=== PATIENT | female | born 1945 | race Caucasian/White ===

== ENCOUNTER → 2020-09-07 | Outpatient (CLI) | payer MEDICARE ==
[~2020-09-07] MED LIST: IOPAMIDOL 370 MG/ML 200 ML INFUS..BTL INJ ONE; SODIUM CHLORIDE 0.9% 100 ML ONE
[2020-09-07 12:21] LABS: BLOOD UREA NITROGEN 16 mg/dL (7-26); BUN/CREATININE RATIO 21 (6-25); CREATININE, SERUM 0.77 mg/dL (0.57-1.11); EST GLOMERULAR FILTRATION RATE > 60 ML/MIN (60-)
--- NOTE | 2020-09-07 13:38 | Diagnostic Imaging Report ---
EXAM: CT CHEST AND ABDOMEN WITH CONTRAST CLINICAL INDICATION: Aortic thrombus TECHNIQUE: CT chest and abdomen was performed, following the administration of intravenous contrast, as per department protocol. Axial, sagittal, and coronal reconstructions were obtained. Additional 3-D reconstructions were generated on the workstation by the technologist. IV CONTRAST:100 cc of Isovue-300 RADIATION DOSE REDUCTION: This exam was performed according to the departmental dose-optimization program which includes automated exposure control, adjustment of the mA and/or kV according to patient size and/or use of iterative reconstruction technique. COMPARISON: None FINDINGS: VASCULAR COMPONENTS: Vascular structures including the entire aorta, the cervicocerebral branches, the celiac superior mesenteric and inferior mesenteric arteries, single bilateral renal arteries, the common iliac arteries to the extent seen are without significant abnormality.. Specifically, there is no acute aortic pathology identified on contrast enhanced images. There is atherosclerosis of the aorta. There is minimal wall thickening of the proximal descending thoracic aorta likely because of the plaque. There is presence of atherosclerosis and wall adherent plaque or small mural thrombus in the infrarenal abdominal aorta. The study was not easy GE aerated. Curved planar reformats and spur not obtained. The measurements are based on axial images. The ascending aorta measures 30 mm. The descending thoracic aorta at the level of the pulmonary artery bifurcation measures 24 mm. Aorta at the diaphragmatic hiatus measures 25 mm. Aorta just below the superior mesenteric artery measures 20 mm. Infrarenal aorta measures 15.8 mm. Aorta just above the bifurcation measures 12.5 mm. There is tortuosity and elongation of the carotid branches. The venous phase was not performed. But grossly there is no significant abnormality of the veins identified either. The main pulmonary artery measures 25 mm. NON-VASCULAR COMPONENTS: LOWER NECK: No pathologic process in imaged portion of lower neck. PULMONARY PARENCHYMA AND AIRWAYS: No pathologic process. MEDIASTINUM AND AUNG: No pathologic process. HEART AND PERICARDIUM: Heart normal size. No coronary artery calcification. No pericardial fluid or thickening. PLEURAL SPACES: No pleural fluid, pleural thickening or pneumothorax. CHEST WALL AND AXILLA: No pathologic process. MUSCULOSKELETAL: Degenerative changes LIVER: No pathologic process. GALLBLADDER: A single calcified gallstone without signs of cholecystitis. BILE DUCTS: No pathologic process. PANCREAS: No pathologic process. SPLEEN: No pathologic process. ADRENALS: No pathologic process. KIDNEYS AND URETERS: Small bilateral cortical renal cysts otherwise unremarkable. GASTROINTESTINAL TRACT: Duodenal wall lipomas. LYMPH NODES: No lymphadenopathy. PERITONEUM/MESENTERY: No free air, significant free fluid, mass or fluid collection. ADDITIONAL RETROPERITONEAL FINDINGS: None. BODY VILLANUEVA: No pathologic process. ADDITIONAL FINDINGS: None. IMPRESSION: No significant acute aortic abnormality on this exam. Calcified gallstone. No other significant abnormal findings. Standardized Report: [id number]. Signed by: Usman Taylor MD on 09/07/2020 1:35 PM
== END ==
LOC: CT 11:44
PROVIDERS: ATTEND Internal Medicine Cardiovascular Disease
DX: I74.10 Embolism and thrombosis of unspecified parts of aorta (principal)
CPT/HCPCS: 36415; 71275; 74175; 82565; 84520; J7050; Q9967